=== PATIENT | male | born 1940 | race Caucasian/White ===

== ENCOUNTER 2016-09-23 11:27 | Emergency (ER) | payer MEDICARE, OTHER ==
[2016-09-23] MEDS ORDERED: diltiaZEM INJ 5 MG/ML VIAL IVP STA (12:48)
[2016-09-23] MEDS ORDERED: diltiaZEM INJ 5 MG/ML VIAL ONE (12:56)
== END 2016-09-23 14:00 | disposition home or self-care (01) ==
DX: I48.91 Unspecified atrial fibrillation (principal); I10 Essential (primary) hypertension

== ENCOUNTER 2018-06-20 11:27 | Emergency (ER) | payer MEDICARE, OTHER ==
[2018-06-20 12:11] LABS: BASOPHILS % (AUTO) 0.6 %; EOSINOPHILS % (AUTO) 0.6 %; HGB - HEMOGLOBIN 11.9 g/dL (14.0-18.0); LYMPHOCYTES # (AUTO) 1.3 10^3/uL (1.5-3.5); LYMPHOCYTES % (AUTO) 24.2 %; MEAN CORPUSCULAR HEMOGLOBIN 29.8 pg (27.0-31.0); MEAN CORPUSCULAR VOLUME 87.7 fL (80.0-94.0); MEAN PLATELET VOLUME 8.7 fL (7.4-11.4); MONOCYTES # (AUTO) 0.5 10^3/uL (0.0-1.0); MONOCYTES % (AUTO) 9.8 %; NEUTROPHILS # (AUTO) 3.5 10^3/uL (1.5-6.6); NEUTROPHILS % (AUTO) 64.8 %; PLT - PLATELET COUNT 224 10^3/uL (130-450); RED CELL DISTRIBUTION WIDTH 15.5 % (12.0-15.0); WHITE BLOOD COUNT 5.4 x10^3/uL (4.8-10.8)
[2018-06-20 12:35] LABS: ALBUMIN 4.4 g/dL (3.2-5.5); ALBUMIN/GLOBULIN RATIO 1.4 (1.0-2.2); CALCIUM 9.3 mg/dL (8.5-10.3); CREATININE 1.3 mg/dL (0.6-1.2); TOTAL PROTEIN 7.5 g/dL (6.7-8.2)
--- NOTE | 2018-06-20 12:35 | XRAY Report ---
Reason: increased SOA Procedure Date: 06/20/2018 Accession Number: [id number] / [id number] Procedure: XR - Chest 2 View X-Ray CPT Code: 06719 FULL RESULT: EXAM: CHEST RADIOGRAPHY EXAM DATE: 06/20/2018 12:12 PM. CLINICAL HISTORY: Increased SOA. COMPARISON: 09/23/2016. TECHNIQUE: 2 views. FINDINGS: Lungs/Pleura: No focal opacities evident. No pleural effusion. No pneumothorax. Hyperlucent, hyperinflated. Linear scarring right lung base. Blunting right costophrenic angle.. Mediastinum: Heart size normal. Ectatic aorta. Other: DJD spine, mild wedging midthoracic vertebral bodies. Old left clavicle fracture IMPRESSION: 1. COPD. 2. No active cardiopulmonary disease RADIA
[2018-06-20] MEDS ORDERED: SODIUM CHLORIDE 0.9% 1,000 ML IV ONE (15:43)
[2018-06-20] MEDS ORDERED: PROPOFOL 200 MG/20 ML VIAL IVP STA (16:21)
--- NOTE | 2018-06-20 17:59 | ED Physician Documentation ---
History of Present Illness - Stated complaint Stated Complaint: LOW BLOOD PRESSURE - Chief complaint Chief Complaint: Cardiac - History obtained from History obtained from: Patient - History of Present Illness Timing: Yesterday Pain level max: 0 Pain level now: 0 Quality: lightheadedness Improved by: keeping still Worsened by: standing up from sitting or lying position - Additonal information Additional information: Pt states 0400 the other day he woke up to go to the bathroom and felt lightheaded with nausea with low blood pressure and irregular heart beats that felt like his atrial fib. He called his cutter operator yesterday and no response till today. He was told to go the E.R. Pt denies any recent trauma, travel or illness. Denies any chest pain. States has exertional dyspnea. Pt stated he gets cardioverted for his Atrial fib. The last one was December 04, 2017. He is on Xarelto and Metoprolol. He states he is packed and ready to go on an [place] cruise in 5 days so he would really like to feel better by getting cardioverted today. Review of Systems Ten Systems: 10 systems reviewed and negative Constitutional: denies: Fever, Chills, Myalgias, Fatigue Nose: denies: Rhinorrhea / runny nose, Congestion Throat: denies: Sore throat Cardiac: denies: Chest pain / pressure, Palpitations, Pedal edema Respiratory: reports: Dyspnea. denies: Cough GI: reports: Nausea. denies: Abdominal Pain, Vomiting, Diarrhea Neurologic: denies: Generalized weakness, Focal weakness, Numbness, Near syncope, Syncope PD PAST MEDICAL HISTORY - Past Medical History Past Medical History: Yes Cardiovascular: Hypertension, Atrial fibrillation - Past Surgical History Past Surgical History: Yes General: Hiatal hernia repair - Present Medications Home Medications: Ambulatory Orders Medication Instructions Recorded Confirmed RX: Losartan Potassium 100 mg PO DAILY 09/23/16 09/23/16 RX: amLODIPine [Norvasc] 10 mg PO DAILY 09/23/16 09/23/16 Triamterene/Hydrochlorothiazid 1 each PO DAILY 09/23/16 09/23/16 [Triamterene-Hctz 37.5-25 mg Cp] RX: Atorvastatin [Lipitor] 20 mg 06/20/18 RX: Metoprolol Succinate 25 mg PO 06/20/18 Rivaroxaban [Xarelto] 20 mg PO 06/20/18 - Allergies Allergies/Adverse Reactions: Allergies Allergy/AdvReac Type Severity Reaction Status Date / Time Sulfa (Sulfonamide Allergy Rash Verified 06/20/18 11:45 Antibiotics) - Living Situation Living Situation: reports: With family Living Arrangement: reports: At home - Social History Does the pt smoke?: No Smoking Status: Former smoker Does the pt drink ETOH?: Yes Does the pt have substance abuse?: No - Immunizations Immunizations are current?: Yes PD ED PE NORMAL - Vitals Vital signs reviewed: Yes - General General: Alert and oriented X 3, No acute distress, Well developed/nourished - HEENT HEENT: EOMI, Moist mucous membranes, Pharynx benign - Neck Neck: Supple, no meningeal sign - Cardiac Cardiac: Other (Irregular heart beat. Grade II CHANDRAKANT.) - Respiratory Respiratory: No respiratory distress, Clear bilaterally - Abdomen Abdomen: Normal bowel sounds, Soft, Non tender, Non distended - Derm Derm: Warm and dry - Extremities Extremities: No deformity - Neuro Neuro: Alert and oriented X 3 - Psych Psych: Normal mood, Normal affect Results - Vitals Vitals: Vital Signs - 24 hr 06/20/18 06/20/18 06/20/18 11:42 11:54 16:00 Temperature 36.4 C L Heart Rate 91 80 Respiratory 21 14 Rate Blood Pressure 120/80 O2 Saturation 98 06/20/18 16:40 Temperature Heart Rate 78 Respiratory 12 Rate Blood Pressure 119/64 O2 Saturation 100 Oxygen O2 Source Nasal cannula - EKG (time done) 1134 Rate: Rate (enter#) (80) Rhythm: Atrial fibrillation [place]: LAD Intervals: RBBB 1653 Rate: Rate (enter#) (53) Rhythm: Sinus bradycardia [place]: LAD Intervals: Normal MT QRS: Normal Ischemia: Normal ST segments - Labs Labs: Laboratory Tests 06/20/18 06/20/18 06/20/18 12:04 12:04 12:04 WBC 5.4 RBC 4.00 L Hgb 11.9 L Hct 35.1 L MCV 87.7 MCH 29.8 MCHC 34.0 RDW 15.5 H Plt Count 224 MPV 8.7 Neut # (Auto) 3.5 Lymph # (Auto) 1.3 L Gove # (Auto) 0.5 Eos # (Auto) 0.0 Baso # (Auto) 0.0 Absolute Nucleated RBC 0.00 Nucleated RBC % 0.0 Sodium 138 Potassium 3.9 Chloride 102 Carbon Dioxide 26 Anion Gap 10.0 BUN 24 H Creatinine 1.3 H Estimated GFR (MDRD) 53 L Glucose 94 Calcium 9.3 Total Bilirubin 1.0 AST 20 ALT 17 Alkaline Phosphatase 44 Troponin I < 0.04 Total Protein 7.5 Albumin 4.4 Globulin 3.1 Albumin/Globulin Ratio 1.4 Lipase 28 Procedures - Cardioversion 1 Indication: Other (atrial fib and pt request) Risks, benefits, alternatives explained to: Pt Prep: IV, O2, hospital monitor, Pulse ox, Airway equip Meds: Propofol CS via: Paddles, Pads, AP approach Sync: Biphasic, 100j Post cardioversion rhythm: NSR Performed by: ED MD PD MEDICAL DECISION MAKING - ED course Complexity details: re-evaluated patient (1435 Pt and spouse informed of cardi ologist recommendations and agreed. 1550 Orthostatic VS: sitting-- 123/61, 89; standing--107/73, 110. Pt felt lightheaded for a few seconds. Pt expressed desire to have cardioversion done in the E.R. Risk and benefits discussed of cardioversion and moderate sedation with propofol. Pt expressed understanding. asked questions more than pt who had gone through this before. 1800 Pt eating and had ambulated to the hallway without difficulty. Wants to go home.), considered differential, d/w patient, d/w family, d/w service consultant (1412 Case discussed with cutter operator Dr Kuldeep Lee covering for pt's cutter operator. Case discussed in details. He recommended checking orthostatics and giving pt IVF; hold pt's HCTZ; may cardiovert today if pt wishes otherwise they will see him on Saturday; pt has to call for this appt time.) Departure - Departure Disposition: Home, Self Care Clinical Impression: Atrial fibrillation, Encounter for cardioversion procedure, Lightheadedness Condition: Good Instructions: ED Afib, ED Cardioversion Follow-Up: Provider,Other [Primary Care Provider] - Within 3 Days Comments: CALL YOUR WELL LOGGING MUD ANALYSIS CAPTAIN ON SATURDAY FOR YOUR APPOINTMENT TIME. HOLD YOUR HYDROCHLOROTHIAZIDE UNTIL RENEWED BY YOUR WELL LOGGING MUD ANALYSIS CAPTAIN ON SATURDAY. IF WORSE RETURN TO THE E.R.
[2018-06-20 18:41] VITALS: BP 134/56
== END 2018-06-20 18:40 | disposition home or self-care (01) ==
LOC: ED 11:27
DX: I48.91 Unspecified atrial fibrillation (principal); I45.10 Unspecified right bundle-branch block; R00.1 Bradycardia, unspecified; I10 Essential (primary) hypertension; Z87.891 Personal history of nicotine dependence
CPT/HCPCS: 36415; 71046; 80053; 83690; 84484; 85025; 92960; 93005; 94770; 96360; 96361; 99284

== ENCOUNTER 2019-02-26 08:00 | Outpatient (CLI) | payer MEDICARE, OTHER | END 2019-02-26 23:59 | disposition home or self-care (01) | LOC: LAB 08:00 | PROVIDERS: ATTEND Internal Medicine Cardiovascular Disease | DX: I48.0 Paroxysmal atrial fibrillation (principal); Z79.01 Long term (current) use of anticoagulants; Z95.3 Presence of xenogenic heart valve | CPT/HCPCS: 85610 ==

== ENCOUNTER 2019-03-06 09:18 | Outpatient (CLI) | payer MEDICARE, OTHER | END 2019-03-06 09:19 | disposition home or self-care (01) | LOC: LAB 09:18 | PROVIDERS: ATTEND Internal Medicine Cardiovascular Disease | DX: Z79.01 Long term (current) use of anticoagulants (principal); Z95.3 Presence of xenogenic heart valve; I48.0 Paroxysmal atrial fibrillation | CPT/HCPCS: 85610 ==

== ENCOUNTER 2019-03-11 09:54 | Outpatient (CLI) | payer MEDICARE, OTHER | END 2019-03-11 09:55 | disposition home or self-care (01) | LOC: LAB 09:54 | PROVIDERS: ATTEND Internal Medicine Cardiovascular Disease | DX: I48.0 Paroxysmal atrial fibrillation (principal); Z95.3 Presence of xenogenic heart valve; Z79.01 Long term (current) use of anticoagulants | CPT/HCPCS: 85610 ==

== ENCOUNTER 2019-03-18 09:53 | Outpatient (CLI) | payer MEDICARE, OTHER | END 2019-03-18 09:54 | disposition home or self-care (01) | LOC: LAB 09:53 | PROVIDERS: ATTEND Pharmacist | DX: I48.0 Paroxysmal atrial fibrillation (principal); Z79.01 Long term (current) use of anticoagulants; Z95.3 Presence of xenogenic heart valve | CPT/HCPCS: 85610 ==

== ENCOUNTER 2019-03-30 09:13 | Outpatient (CLI) | payer MEDICARE, OTHER | END 2019-03-30 09:14 | disposition home or self-care (01) | LOC: LAB 09:13 | PROVIDERS: ATTEND Pharmacist | DX: I48.0 Paroxysmal atrial fibrillation (principal); Z79.01 Long term (current) use of anticoagulants; Z95.3 Presence of xenogenic heart valve | CPT/HCPCS: 85610 ==

== ENCOUNTER 2019-04-08 10:09 | Outpatient (CLI) | payer MEDICARE, OTHER | END 2019-04-08 10:10 | disposition home or self-care (01) | LOC: LAB 10:09 | PROVIDERS: ATTEND Pharmacist | DX: I48.0 Paroxysmal atrial fibrillation (principal); Z95.3 Presence of xenogenic heart valve; Z79.01 Long term (current) use of anticoagulants | CPT/HCPCS: 85610 ==

== ENCOUNTER 2019-04-29 10:21 | Outpatient (CLI) | payer MEDICARE, OTHER | END 2019-04-29 10:22 | disposition home or self-care (01) | LOC: LAB 10:21 | PROVIDERS: ATTEND Internal Medicine Cardiovascular Disease | DX: I48.0 Paroxysmal atrial fibrillation (principal); Z95.3 Presence of xenogenic heart valve; Z79.01 Long term (current) use of anticoagulants | CPT/HCPCS: 85610 ==

== ENCOUNTER 2019-05-12 08:48 | Outpatient (CLI) | payer MEDICARE, OTHER | END 2019-05-12 08:49 | disposition home or self-care (01) | LOC: LAB 08:48 | PROVIDERS: ATTEND Internal Medicine Cardiovascular Disease | DX: I48.0 Paroxysmal atrial fibrillation (principal); Z95.3 Presence of xenogenic heart valve; Z79.01 Long term (current) use of anticoagulants | CPT/HCPCS: 85610 ==

== ENCOUNTER 2019-05-19 09:17 | Outpatient (CLI) | payer MEDICARE, OTHER | END 2019-05-19 09:18 | disposition home or self-care (01) | LOC: LAB 09:17 | PROVIDERS: ATTEND Internal Medicine Cardiovascular Disease | DX: I48.0 Paroxysmal atrial fibrillation (principal); Z79.01 Long term (current) use of anticoagulants; Z95.3 Presence of xenogenic heart valve | CPT/HCPCS: 85610 ==

== ENCOUNTER 2019-05-29 10:07 | Outpatient (CLI) | payer MEDICARE, OTHER | END 2019-05-29 10:08 | disposition home or self-care (01) | LOC: LAB 10:07 | PROVIDERS: ATTEND Internal Medicine Cardiovascular Disease | DX: I48.0 Paroxysmal atrial fibrillation (principal); Z79.01 Long term (current) use of anticoagulants; Z95.3 Presence of xenogenic heart valve | CPT/HCPCS: 85610 ==

== ENCOUNTER 2019-06-11 09:06 | Emergency (ER) | payer MEDICARE, OTHER ==
--- NOTE | 2019-06-11 09:45 | ED Physician Documentation ---
History of Present Illness - Stated complaint Stated Complaint: CONTINUOUS NOSE BLEED - Chief complaint Chief Complaint: Heent - Additonal information Additional information: This is a 78-year-old male with a history of atrial fibrillation and heart valve replacement on Xarelto, who presents with a nosebleed. Patient states that the nosebleed began 45 minutes prior to arrival in the absence of any trauma. He has not had nosebleeds in the past. He has been wiping with a blood but has continued to use. He denies bleeding elsewhere. No lightheadedness, shortness of breath. Review of Systems Constitutional: denies: Fever Nose: reports: Epistaxis Respiratory: denies: Dyspnea Neurologic: denies: Near syncope PD PAST MEDICAL HISTORY - Past Medical History Cardiovascular: Hypertension, Atrial fibrillation, Valve disorder Respiratory: None Endocrine/Autoimmune: None GI: None : None Psych: None Musculoskeletal: None Derm: None - Past Surgical History Past Surgical History: Yes General: Hiatal hernia repair Cardiovascular: Valve replacement - Present Medications Home Medications: Ambulatory Orders Medication Instructions Recorded Confirmed Atorvastatin [Lipitor] 20 mg 06/20/18 Metoprolol Succinate 25 mg PO 06/20/18 Rivaroxaban [Xarelto] 20 mg PO 06/20/18 Aspirin [Children's Aspirin] 81 mg PO DAILY 06/11/19 06/11/19 Chlorthalidone 12.5 mg PO DAILY 06/11/19 06/11/19 Furosemide [Lasix] 40 mg PO PRN PRN 06/11/19 06/11/19 Omeprazole 20 mg PO DAILY 06/11/19 06/11/19 - Allergies Allergies/Adverse Reactions: Allergies Allergy/AdvReac Type Severity Reaction Status Date / Time Sulfa (Sulfonamide Allergy Rash Verified 06/20/18 11:45 Antibiotics) - Social History Does the pt smoke?: No Smoking Status: Never smoker Does the pt drink ETOH?: Yes Does the pt have substance abuse?: No - Immunizations Immunizations are current?: Yes - POLST Patient has POLST: No PD ED PE NORMAL - Vitals Vital signs reviewed: Yes - General General: Alert and oriented X 3 - HEENT HEENT: Other (Oozing from the left nare. Nose is atraumatic in appearance.With direct pressure of the using does cease.) - Neck Neck: Supple, no meningeal sign - Cardiac Cardiac: RRR - Respiratory Respiratory: No respiratory distress - Abdomen Abdomen: Non distended - Derm Derm: Warm and dry - Extremities Extremities: No deformity - Neuro Neuro: Alert and oriented X 3 - Psych Psych: Normal mood, Normal affect Results - Vitals Vitals: Vital Signs - 24 hr 06/11/19 06/11/19 06/11/19 09:17 11:29 13:24 Temperature 36.6 C 36.4 C L Heart Rate 73 62 60 Respiratory 19 16 20 Rate Blood Pressure 195/122 H 167/118 H 157/142 H O2 Saturation 100 100 96 Oxygen O2 Source Room air PD MEDICAL DECISION MAKING - ED course Complexity details: considered differential (epistaxis, coagulopathy, thrombocy topenia) ED course: Pt presents with epistaxis, he is hypertensive and on a DOAC. He has had minimal blood loss from his description and no clinical signs of anemia. Using direct pressure his nosebleed did stop temporarily, but then recurred. Clot was removed from his nose and Afrin was applied to both nostrils, and then direct pressure applied once again. This provided excellent hemostasis. With the nose clamps removed for 40 minutes patient had no bleeding and was eager to go home. Given hemostasis was obtained I do not think labs such as CBC and INR are necessary today. I discussed care for epistaxis at home, PCP follow up, and strict return precautions. Pt agreed and was discharged home. Departure - Departure Disposition: 01 Home, Self Care Clinical Impression: Epistaxis Condition: Good Instructions: Nosebleed Follow-Up: Monty Rachel MD [Primary Care Provider] - Comments: You were seen today for nosebleed. If your nosebleed recurs please spray the Af rin up your nostril twice and then replaced the clamps for 15 minutes. Do not use the Afrin for more than 3 days at a time. If you are still having bleeding after direct pressure for 15 minutes return to the emergency department. Your blood pressure was quite high today, please log your blood pressure and follow- up with your primary care provider on this. Discharge Date/Time: 06/11/19 13:25
[2019-06-11] MEDS ORDERED: CHLORTHALIDONE 25 MG TABLET PO STA (11:10)
[2019-06-11] MEDS ORDERED: OXYMETAZOLINE HCL 100 SPRAYS BOTTLE NAS STA (11:22)
[2019-06-11 13:25] VITALS: BP 157/142
== END 2019-06-11 13:25 | disposition home or self-care (01) ==
LOC: ED 09:06
DX: R04.0 Epistaxis (principal); Z79.01 Long term (current) use of anticoagulants; Z79.82 Long term (current) use of aspirin; I48.91 Unspecified atrial fibrillation; Z95.2 Presence of prosthetic heart valve; I10 Essential (primary) hypertension
CPT/HCPCS: 99282; 99284; A9270

== ENCOUNTER 2021-09-18 15:26 | Outpatient (CLI) | payer MEDICARE, OTHER | END 2021-09-18 15:27 | disposition critical access hospital (66) | LOC: EMS 15:26 | DX: R29.898 Other symptoms and signs involving the musculoskeletal system (principal); H51.0 Palsy (spasm) of conjugate gaze | CPT/HCPCS: A0425; A0427 ==

== ENCOUNTER 2021-09-18 15:36 | Emergency (ER) | payer MEDICARE, OTHER ==
--- NOTE | 2021-09-18 15:50 | ED Physician Documentation ---
PD HPI FOCAL NEURO - Stated complaint Stated Complaint: AMS - History obtained from History obtained from: Patient, EMS - History of Present Illness Timing - onset: Enter time (2229), Last night Timing - duration: Hours Timing - details: Abrupt onset, Still present Time of symptom onset unknown: Time of onset unknown Severity of deficit: Severe Weakness: Arm, Hand, Leg, Foot, Left Associated symptoms: Headache, Fall, Head injury, Neck pain. No: Nausea / vomiting, Seizure, Syncope Contributing factors: positive: Anticoagulated Baseline status: positive: A&OX3, ambulatory, indep Similar symptoms before: Has not had sx before Recently seen: Not recently seen - Additional information Additional information: 80-year-old male on Xarelto with atrial fibrillation has had a fall in his home last night about 10:30 PM. He has not been able to use his left side since that time this is not resolved today and his is called the ambulance. The patient appears to have left neglect and weakness to the left side this was not pre-existing. Review of Systems Unable to obtain: Confused Constitutional: denies: Fever Ears: denies: Ear pain Nose: denies: Congestion Respiratory: denies: Dyspnea, Cough GI: denies: Vomiting Neurologic: reports: Focal weakness PD PAST MEDICAL HISTORY - Past Medical History Cardiovascular: Hypertension, Atrial fibrillation, Valve disorder Respiratory: None Endocrine/Autoimmune: None GI: None : None Psych: None Musculoskeletal: None Derm: None - Past Surgical History Past Surgical History: Yes General: Hiatal hernia repair Cardiovascular: Valve replacement - Present Medications Home Medications: Ambulatory Orders Medication Instructions Recorded Confirmed Atorvastatin [Lipitor] 20 mg 06/20/18 Metoprolol Succinate 25 mg PO 06/20/18 Rivaroxaban [Xarelto] 20 mg PO 06/20/18 Aspirin [Children's Aspirin] 81 mg PO DAILY 06/11/19 06/11/19 Chlorthalidone 12.5 mg PO DAILY 06/11/19 06/11/19 Furosemide [Lasix] 40 mg PO PRN PRN 06/11/19 06/11/19 Omeprazole 20 mg PO DAILY 06/11/19 06/11/19 - Allergies Allergies/Adverse Reactions: Allergies Allergy/AdvReac Type Severity Reaction Status Date / Time Sulfa (Sulfonamide Allergy Rash Verified 06/20/18 11:45 Antibiotics) - Social History Does the pt smoke?: No Smoking Status: Never smoker Does the pt drink ETOH?: Yes Does the pt have substance abuse?: No - Immunizations Immunizations are current?: Yes - POLST Patient has POLST: No PD ED PE NORMAL - Vitals Vital signs reviewed: Yes - General General: No acute distress, Well developed/nourished - HEENT HEENT: PERRL, EOMI, Other (Ecchymosis to the central forehead is mild.) - Neck Neck: Supple, no meningeal sign, Other (Mild mid cervical spine tenderness) - Cardiac Cardiac: Other (Irregularly irregular rate and rhythm with a 2 out of 6 holosystolic murmur at the left sternal border.) - Respiratory Respiratory: No respiratory distress, Clear bilaterally - Abdomen Abdomen: Soft, Non tender - Back Back: No CVA TTP, No spinal TTP - Derm Derm: Normal color, Warm and dry, No rash - Extremities Extremities: No deformity, No edema - Neuro Neuro: vice president of finance 2-12 intact, Normal speech Eye Opening: Spontaneous Motor: Obeys Commands Verbal: Confused GCS Score: 14 - Psych Psych: Normal mood, Normal affect NIHSS - Time Time: 15:45 - Level of Consciousness Level of consciousness: (0) Alert, Keenly responsive LOC Questions: (0) Answers both Q's correct LOC Commands: (1) Performs one correctly - Gaze Best Gaze: (1) Partial gaze palsy - Visual Visual: (1) Partial hemianopia - Facial Palsy Facial Palsy: (0) Normal, symmetrical movement - Motor Arms (both separate) Motor Arm (right): (0) No drift Motor Arm (left): (1) Drift - Motor Legs (both separate) Motor Leg (right): (0) No drift Motor Leg (left): (2) Some effort against gravity - Limb Ataxia Limb Ataxia: (2) Present in 2 limbs - Sensory Sensory: (1) Uueg-vn-toapnnla loss - Best Language Best Language: (0) No aphasia - Dysarthria Dysarthria: (0) Normal - Extinction and Inattention (formally neg Extinction and inattention: (1) Visual,tactile,auditory,spatial, or personal inattention - Total Score/Results Total Score/Result: 10 Results - Vitals Vitals: Vital Signs - 24 hr 01/10/22 01/10/22 01/10/22 15:40 16:49 17:00 Temperature 36.9 C 37.3 C Heart Rate 92 85 83 Respiratory 14 22 21 Rate Blood Pressure 163/108 H 175/100 H 131/114 H O2 Saturation 99 97 99 09/18/21 09/18/21 17:30 18:00 Temperature Heart Rate 95 94 Respiratory 17 18 Rate Blood Pressure 178/107 H 172/110 H O2 Saturation 100 96 Oxygen O2 Source Room air - EKG (time done) 1551 Rate: Rate (enter#) (107) Rhythm: Sinus tachycardia Intervals: RBBB Ischemia: ST depression (anterolateral diffuse suggesting ischemia) Compare to prior EKG: Changed from prior EKG (SPT 06/20/2018 the rhythm has changed to sinus, the rate is faster and lateral ST depression has occurred. ) Computer interpretation: Agree with computer - Labs Labs: Laboratory Tests 09/18/21 09/18/21 09/18/21 16:00 16:00 16:00 WBC 14.5 H RBC 5.36 Hgb 17.2 Hct 49.8 MCV 92.9 MCH 32.1 H MCHC 34.5 RDW 14.0 Plt Count 148 MPV 11.5 H Neut # (Auto) 12.7 H Lymph # (Auto) 0.9 L Brew[place] # (Auto) 0.8 Eos # (Auto) 0.0 Baso # (Auto) 0.0 Absolute Nucleated RBC 0.00 Nucleated RBC % 0.0 PT 26.5 H INR 2.4 H APTT 33.2 Sodium 137 Potassium 2.9 L Chloride 97 L Carbon Dioxide 27 Anion Gap 13.0 BUN 16 Creatinine 1.0 Estimated GFR (MDRD) 72 L Glucose 130 H Calcium 9.5 Total Bilirubin 2.1 H AST 33 ALT 21 Alkaline Phosphatase 62 Total Protein 8.3 H Albumin 4.4 Globulin 3.9 Albumin/Globulin Ratio 1.1 Lipase 24 - Rads (name of study) CT head Radiology: Prelim report reviewed (Impression: 1. Large intraparenchymal hemorrhage with extension into the ventricular system. This may be a hypertensive hemorrhage or large hemorrhagic stroke. There is a small amount of right to left midline shift is seen within the lateral ventricles and generalized cerebral edema ), Final report received (cerebral edema throughout the upper right hemisphere. No evidence of fracture or significant soft tissue injury.), EMP read indepedently, See rad report PD MEDICAL DECISION MAKING - ED course Complexity details: reviewed old records, reviewed results, re-evaluated patient, considered differential, d/w patient ED course: 80-year-old male with atrial fibrillation on Xarelto has had a fall, contusion to the forehead, and has radiographically demonstrated intra ventricular hemorrhage. He is administered Kcentra and the trauma center at [facility] is consulted. They have recommended a systolic blood pressure under 160 use of labetalol if necessary and the head of the bed at 30 degrees. 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 His pressure is high and Labetalol is started with a 10mg bolus dose and a drip at 0.5mg/min start. Dr. Orellana at [facility] has indicated they are not able to care for this patient now at [facility] and he recommends attempt to transfer elsewhere and a call back if unsuccessful. At shift change care is turned over to Dr. Padilla awaiting a hospital with neurosurgery capability. Departure - Departure Disposition: 02 Transfer Acute Care Hosp Clinical Impression: Traumatic intracranial hemorrhage Qualifiers: Encounter type: initial encounter Loss of consciousness presence/duration: with LOC of unspecified duration Qualified Code(s): S06.309A - Unspecified focal traumatic brain injury with loss of consciousness of unspecified duration, initial encounter Condition: Stable
[2021-09-18 16:04] LABS: BASOPHILS % (AUTO) 0.3 %; HCT - HEMATOCRIT 49.8 % (42.0-52.0); HGB - HEMOGLOBIN 17.2 g/dL (14.0-18.0); LYMPHOCYTES # (AUTO) 0.9 10^3/uL (1.5-3.5); LYMPHOCYTES % (AUTO) 6.1 %; MEAN CORPUSCULAR HEMOGLOBIN 32.1 pg (27.0-31.0); MEAN CORPUSCULAR HGB CONC 34.5 g/dL (32.0-36.0); MEAN CORPUSCULAR VOLUME 92.9 fL (80.0-94.0); MEAN PLATELET VOLUME 11.5 fL (7.4-11.4); MONOCYTES # (AUTO) 0.8 10^3/uL (0.0-1.0); MONOCYTES % (AUTO) 5.5 %; NEUTROPHILS # (AUTO) 12.7 10^3/uL (1.5-6.6); NEUTROPHILS % (AUTO) 87.7 %; PLT - PLATELET COUNT 148 10^3/uL (130-450); RED BLOOD COUNT 5.36 10^6/uL (4.70-6.10); WHITE BLOOD COUNT 14.5 x10^3/uL (4.8-10.8)
[2021-09-18 16:09] LABS: INR 2.4 (0.8-1.2); PT - PROTHROMBIN TIME 26.5 secs (9.9-12.6)
[2021-09-18] MEDS ORDERED: iohexoL-300 100 ML VIAL ONE (16:09)
[2021-09-18 16:17] LABS: ALBUMIN 4.4 g/dL (3.2-5.5); ALBUMIN/GLOBULIN RATIO 1.1 (1.0-2.2); BILIRUBIN,TOTAL 2.1 mg/dL (0.2-1.0); CALCIUM 9.5 mg/dL (8.5-10.3); PARTIAL THROMBOPLASTIN TIME 33.2 secs (24.9-33.3); POTASSIUM 2.9 mmol/L (3.5-5.0); TOTAL PROTEIN 8.3 g/dL (6.7-8.2)
--- NOTE | 2021-09-18 16:30 | XRAY Report ---
PROCEDURE: Chest 1 View X-Ray INDICATIONS: chest pain TECHNIQUE: One view of the chest was acquired. COMPARISON: 06/20/2018 FINDINGS: Surgical changes and devices: Median sternotomy wires and prosthetic heart valve are seen. Lungs and pleura: No pleural effusions or pneumothorax. Lungs are clear. Mediastinum: Mildly tortuous thoracic aorta is noted. Heart size is normal. Bones and chest wall: No suspicious bony lesions. Overlying soft tissues appear unremarkable. IMPRESSION: No acute cardiopulmonary pathology. Reviewed by: Wesley Hines MD on 09/18/2021 4:29 PM PST Approved by: Wesley Hines MD on 09/18/2021 4:29 PM PST Station ID: [id number]
[2021-09-18] MEDS ORDERED: PROTHROMBIN COMPLEX CONC 500 UNIT VIAL IVP STA (16:45)
--- NOTE | 2021-09-18 16:58 | CT Report ---
PROCEDURE: HEAD WO INDICATIONS: LEFT SIDE WEAKNESS/NEGLECT TECHNIQUE: Noncontrast 4.5 mm thick angled axial sections acquired from the foramen magnum to the vertex. For r adiation dose reduction, the following was used: automated exposure control, adjustment of mA and/or kV according to patient size. COMPARISON: None. FINDINGS: Image quality: Excellent. Large right parietal intraparenchymal hemorrhage measuring about 6.1 x 7.1 x 4.3 cm. There is surroun ding vasogenic edema. Hemorrhage extends into the atrium of the lateral ventricle. There is about 7 m m of midline shift to the intraventricular septum. Blood fills the third ventricle and is seen in the fourth ventricle but there is no hydrocephalus. Mild generalized edema is present throughout the upp er portion of the right cerebral hemisphere. The basal cisterns are patent and there is no uncal luz iation. Skull and face: Calvarium and visualized facial bones are intact, without suspicious lesions. Sinuses: Visualized sinuses and mastoids are clear. IMPRESSION: 1. Large intraparenchymal hemorrhage with extension into the ventricular system. This may be hyperten sive hemorrhage or large hemorrhagic stroke. 2. There is a small amount of [id number] midline shift is seen within the lateral ventricles and g eneralized cerebral edema throughout the upper right hemisphere. 3. No evidence of fracture or significant soft tissue injury. 4. Discussed with Dr. Reeves in the emergency room at 1651 hours Reviewed by: Yuliana Tolbert MD on 09/18/2021 4:57 PM PST Approved by: Yuliana Tolbert MD on 09/18/2021 4:57 PM PST Station ID: [id number]
[2021-09-18] MEDS ORDERED: LABETALOL 20 MG/4 ML SYRINGE IVP STA (18:05)
--- NOTE | 2021-09-18 18:18 | ED Physician Documentation ---
ED Addendum - Addendum Addendum: 09/18/21 18:[address] Reeves at shift change. Briefly is an 80-year-old gentleman on Xarelto who has a large intracranial hemorrhage. [facility] has declined the case as they are too full and calls are being made to find a place with neurosurgical availability. He had received Kcentra, 2000 mg IV to reverse his Xarelto. Dr. Reeves is ordering a CT of the neck at shift change which I will follow-up on. 09/18/21 19:11 Received a call back from Dr. Abdul, neurosurgery at [facility]. He agrees with transfer and they do have a bed available. They will call me back with the skin grader. 09/18/21 20:[address] Greer, ICU physician at . [facility] completed and [facility] PCS as well. 09/18/21 20:54 Critical care time: 45 minutes, spent in patient evaluation, family counseling, and multiple consultations. Also titration of labetalol drip.
[2021-09-18] MEDS: LABETALOL VIAL 200 MG in SODIUM CHLORIDE 0.9% 160 ML IV STA ×3 (18:38→20:47)
[2021-09-18 18:55] LABS: B. PARAPERTUSSIS- RESP PCR PAN NOT DETECTED; B. PERTUSSIS- RESP PCR PANEL NOT DETECTED; C. PNEUMONIAE- RESP PCR PANEL NOT DETECTED; CORONAVIRUS 229E-RESP PCR NOT DETECTED; CORONAVIRUS HKU1-RESP PCR NOT DETECTED; CORONAVIRUS NL63-RESP PCR NOT DETECTED; CORONAVIRUS OC43-RESP PCR NOT DETECTED; HUMAN METAPNEUMOVIRUS NOT DETECTED; INFLUENZA A- RESP PCR PANEL NOT DETECTED; INFLUENZA B - RESP PCR PANEL NOT DETECTED; M. PNEUMONIAE- RESP PCR PANEL NOT DETECTED; PARAINFLUENZA VIRUS 1 NOT DETECTED; PARAINFLUENZA VIRUS 2 NOT DETECTED; PARAINFLUENZA VIRUS 3 NOT DETECTED; PARAINFLUENZA VIRUS 4 NOT DETECTED; RHINOVIRUS/ENTEROVIRUS NOT DETECTED; RSV- RESP PCR PANEL NOT DETECTED; SARS-CoV-2 -RESP PCR PANEL NOT DETECTED
--- NOTE | 2021-09-18 19:11 | CT Report ---
PROCEDURE: CERVICAL SPINE WO INDICATIONS: fall head injury neck pain TECHNIQUE: Noncontrast 3 mm thick sections acquired from the skull base to the T4 level. Sagittal and coronal r eformats were then constructed. For radiation dose reduction, the following was used: automated exp osure control, adjustment of mA and/or kV according to patient size. COMPARISON: CT head 09/18/2021. FINDINGS: Image quality: Excellent. Bones: No acute fractures or dislocations. Visualized superior ribs are intact. Multilevel degener ative disc disease and facet hypertrophy is seen throughout the cervical spine. No high-grade narrowi ng of the bony spinal canal is seen. Soft tissues: No right-sided intracranial hemorrhage with intraventricular extension is partially im aged within the included right occipital lobe and fourth ventricle. Prevertebral soft tissues are nor mal in thickness. No paravertebral hematomas. No apical pneumothoraces. IMPRESSION: 1.No acute cervical spine fracture or subluxation. 2.Known intraparenchymal hemorrhage in the right cerebral hemisphere is partially imaged with known i ntraventricular extension of blood products. 3.Multilevel spondylosis. Reviewed by: Karl Dutta MD on 09/18/2021 7:09 PM PST Approved by: Karl Dutta MD on 09/18/2021 7:09 PM PST Station ID: [id number]
[2021-09-18] MEDS ORDERED: LABETALOL 5 MG/1 ML 20 ML MDV ONE ×3 (20:03→22:05)
[2021-09-18] MEDS ORDERED: LABETALOL VIAL 200 MG in SODIUM CHLORIDE 0.9% 160 ML IV STA ×2 (20:38→21:43)
[2021-09-18] MEDS ORDERED: ONDANSETRON 4 MG/2 ML VIAL IVP STA (20:53)
[2021-09-18 21:29] VITALS: BP 134/92
== END 2021-09-18 21:54 | disposition short-term general hospital (02) ==
LOC: EDUNIT# → ED 15:36
DX: S06.309A Unspecified focal traumatic brain injury with loss of consciousness of unspecified duration, initial encounter (principal); S00.83XA Contusion of other part of head, initial encounter; W19.XXXA Unspecified fall, initial encounter; Y92.009 Unspecified place in unspecified non-institutional (private) residence as the place of occurrence of the external cause; I10 Essential (primary) hypertension; G81.94 Hemiplegia, unspecified affecting left nondominant side; R29.710 NIHSS score 10; R00.0 Tachycardia, unspecified; I45.10 Unspecified right bundle-branch block; I48.91 Unspecified atrial fibrillation; Z79.01 Long term (current) use of anticoagulants; Z79.82 Long term (current) use of aspirin; M47.812 Spondylosis without myelopathy or radiculopathy, cervical region; Z20.822 Contact with and (suspected) exposure to COVID-19
CPT/HCPCS: 36415; 70450; 71045; 72125; 80053; 83690; 85025; 85610; 85730; 87631; 93005; 96365; 96366; 96375; 96376; 99285; 99291; J7168; 0202U

== ENCOUNTER 2022-12-15 21:39 | Emergency (ER) | payer MEDICARE ==
[2022-12-15 21:58] VITALS: BP 118/78
[2022-12-15] MEDS ORDERED: IPRATROPIUM/ALBUTEROL 3 ML NEB INH STA (22:17)
--- NOTE | 2022-12-15 22:22 | ED Physician Documentation ---
PD HPI URI - Stated complaint Stated Complaint: COUGH - Chief complaint Chief Complaint: Resp - History obtained from History obtained from: Patient, Family - History of Present Illness Pain level max: 0 Pain level now: 0 Improves by: Rest (Patient is an 82-year-old male who presents to the emergency department with a cough x1 week. No fevers. No chills. Mostly dry. Negative COVID test x2. No difficulty breathing. Is not taking anything for it at home. No history of COPD or asthma. He states he does not smoke.) Review of Systems Constitutional: denies: Fever, Chills Nose: reports: Rhinorrhea / runny nose, Congestion Respiratory: reports: Cough. denies: Dyspnea GI: denies: Vomiting, Diarrhea Skin: denies: Rash PD PAST MEDICAL HISTORY - Past Medical History Cardiovascular: Hypertension, Atrial fibrillation, Valve disorder Respiratory: None Endocrine/Autoimmune: None GI: None : None Psych: None Musculoskeletal: None Derm: None - Past Surgical History Past Surgical History: Yes General: Hiatal hernia repair Cardiovascular: Valve replacement - Present Medications Home Medications: Ambulatory Orders Medication Instructions Recorded Confirmed Atorvastatin [Lipitor] 20 mg 06/20/18 Metoprolol Succinate 25 mg PO 06/20/18 Rivaroxaban [Xarelto] 20 mg PO 06/20/18 Aspirin [Children's Aspirin] 81 mg PO DAILY 06/11/19 06/11/19 Chlorthalidone 12.5 mg PO DAILY 06/11/19 06/11/19 Furosemide [Lasix] 40 mg PO PRN PRN 06/11/19 06/11/19 Omeprazole 20 mg PO DAILY 06/11/19 06/11/19 Benzonatate [Tessalon] 200 mg PO TID PRN #30 cap 12/15/22 - Allergies Allergies/Adverse Reactions: Allergies Allergy/AdvReac Type Severity Reaction Status Date / Time Sulfa (Sulfonamide Allergy Rash Verified 12/15/22 21:57 Antibiotics) - Social History Does the pt smoke?: No Smoking Status: Never smoker Does the pt drink ETOH?: Yes Does the pt have substance abuse?: No - Immunizations Immunizations are current?: Yes - POLST Patient has POLST: No PD ED PE NORMAL - Vitals Vital signs reviewed: Yes - General General: Alert and oriented X 3, No acute distress - HEENT HEENT: Moist mucous membranes - Neck Neck: Supple, no meningeal sign - Cardiac Cardiac: RRR - Respiratory Respiratory: No respiratory distress, Other (Mild rhonchi in the bilateral lower lobes. Otherwise clear to auscultation bilaterally) - Abdomen Abdomen: Soft, Non tender, Non distended - Derm Derm: Warm and dry - Extremities Extremities: No edema - Neuro Neuro: Alert and oriented X 3 Results - Vitals Vitals: Vital Signs - 24 hr 12/15/22 12/15/22 21:54 22:30 Temperature 36.9 C Heart Rate 96 82 Respiratory 16 18 Rate Blood Pressure 118/78 O2 Saturation 97 Oxygen O2 Source Room air - Rads (name of study) Chest x-ray Relevant Findings:: Final report received, See rad report PD Medical Decision Making - ED course Complexity details: reviewed results, re-evaluated patient, considered differential, d/w patient, d/w family ED course: No evidence of pneumonia on chest x-ray. Patient is very well-appearing, nontoxic. Afebrile. No hypoxia. No respiratory distress. Was given a DuoNeb treatment, did not feel like this changed much. We will place him on Tessalon for home. Appears to be a viral URI. He has already had 2 negative COVID test. Patient counseled regarding signs and symptoms for which I believe and urgent re-evaluation would be necessary. Patient with good understanding of and agreement to plan and is comfortable going home at this time This document was made in part using voice recognition software. While efforts are made to proofread this document, sound alike and grammatical errors may occur. Departure - Departure Disposition: 01 Home, Self Care Clinical Impression: Upper respiratory tract infection Qualifiers: URI type: unspecified viral URI Qualified Code(s): J06.9 - Acute upper respiratory infection, unspecified Condition: Good Instructions: ED Viral Syndrome Follow-Up: Bon Simpson [Primary Care Provider] - Within 1 week Prescriptions: Benzonatate [Tessalon] 200 mg PO TID PRN #30 cap PRN Reason: Cough Comments: There is no evidence of pneumonia on your chest x-ray today. Please follow-up with your doctor for further care. Please return if you worsen. This appears to be a viral upper respiratory infection. Your prescriptions were sent to [facility] in [place].
--- NOTE | 2022-12-15 22:49 | XRAY Report ---
PROCEDURE: Chest 1 View X-Ray INDICATIONS: cough TECHNIQUE: One view of the chest was acquired. COMPARISON: 09/18/2021 chest plain films. FINDINGS: Surgical changes and devices: Prior sternotomy wires Lungs and pleura: No pleural effusions or pneumothorax. Lungs are abnormal with a mild degree of pu lmonary edema or interstitial prominence. Mediastinum: Mediastinal contours appear normal. Heart size is mildly enlarged chronically. Bones and chest wall: No suspicious bony lesions. Overlying soft tissues appear unremarkable. IMPRESSION: No pneumonia found. Chronic CHF pattern, prior sternotomy. Reviewed by: Alec Quintanilla MD on 12/15/2022 10:48 PM PDT Approved by: Alec Quintanilla MD on 12/15/2022 10:48 PM PDT Station ID: [id number]
[2022-12-15] MEDS ORDERED: BENZONATATE 100 MG CAPSULE PO STA (23:01)
== END 2022-12-15 23:32 | disposition home or self-care (01) ==
LOC: ED 21:39
DX: J06.9 Acute upper respiratory infection, unspecified (principal)
CPT/HCPCS: 71045; 99283; A9270

== ENCOUNTER 2023-01-21 16:06 | Emergency (ER) | payer MEDICARE ==
[2023-01-21 16:49] LABS: BASOPHILS # (AUTO) 0.1 10^3/uL (0.0-0.1); BASOPHILS % (AUTO) 1.1 %; EOSINOPHILS # (AUTO) 0.2 10^3/uL (0.0-0.7); EOSINOPHILS % (AUTO) 2.4 %; HCT - HEMATOCRIT 40.5 % (42.0-52.0); HGB - HEMOGLOBIN 12.9 g/dL (14.0-18.0); LYMPHOCYTES # (AUTO) 1.8 10^3/uL (1.5-3.5); LYMPHOCYTES % (AUTO) 24.6 %; MEAN CORPUSCULAR HEMOGLOBIN 30.4 pg (27.0-31.0); MEAN CORPUSCULAR HGB CONC 31.9 g/dL (32.0-36.0); MEAN CORPUSCULAR VOLUME 95.5 fL (80.0-94.0); MEAN PLATELET VOLUME 11.3 fL (7.4-11.4); MONOCYTES # (AUTO) 0.9 10^3/uL (0.0-1.0); MONOCYTES % (AUTO) 12.4 %; NEUTROPHILS # (AUTO) 4.2 10^3/uL (1.5-6.6); NEUTROPHILS % (AUTO) 59.2 %; PLT - PLATELET COUNT 191 10^3/uL (130-450); RED BLOOD COUNT 4.24 10^6/uL (4.70-6.10); RED CELL DISTRIBUTION WIDTH 15.5 % (12.0-15.0); WHITE BLOOD COUNT 7.1 x10^3/uL (4.8-10.8)
[2023-01-21 17:01] LABS: ALBUMIN/GLOBULIN RATIO 1.1 (1.0-2.2); BILIRUBIN,TOTAL 1.6 mg/dL (0.2-1.0); CALCIUM 9.4 mg/dL (8.5-10.3); CREATININE 1.2 mg/dL (0.6-1.2); POTASSIUM 3.6 mmol/L (3.5-5.0); TOTAL PROTEIN 7.6 g/dL (6.7-8.2)
--- NOTE | 2023-01-21 17:02 | XRAY Report ---
PROCEDURE: Chest 1 View X-Ray INDICATIONS: Chest Pain TECHNIQUE: One view of the chest was acquired. COMPARISON: None. FINDINGS: Surgical changes and devices: Prosthetic valve and prior sternotomy. Lungs and pleura: Small pleural effusions, right greater than left. Mediastinum: Mediastinal contours appear normal. Heart size is enlarged. Bones and chest wall: No suspicious bony lesions. Overlying soft tissues appear unremarkable. IMPRESSION: Small pleural effusions, right greater than left. Reviewed by: Lambert Simmons on 01/21/2023 5:00 PM PDT Approved by: Lambert Simmons on 01/21/2023 5:00 PM PDT Station ID: [id number]
--- NOTE | 2023-01-21 17:56 | ED Physician Documentation ---
History of Present Illness - Stated complaint Stated Complaint: SOA - Chief complaint Chief Complaint: Resp - Additonal information Additional information: 82-year-old male who has a history of atrial fibrillation presents the emergency department for evaluation of 1 week of dyspnea and orthopnea. He denies chest pain or cough. No fevers. He does have some swelling on his lower extremities but he is unsure how long this has been occurring. He does report that in 2018 he had an ablation at [facility]. The patient historically has taken carvedilol and lisinopril as well as a daily aspirin. He was previously on Xarelto but in September 2021 he had a large intraparenchymal hemorrhage. The patient was subsequently transferred to [place] for management of this and has not been on anticoagulation since. Patient is followed by cardiology at [facility] Dr. Temple Meds: Carvedilol 25 mg twice daily, lisinopril 20 mg twice daily, atorvastatin 10 mg once daily, 81 mg aspirin daily Review of Systems Constitutional: denies: Fever Nose: reports: Reviewed and negative Throat: reports: Reviewed and negative Cardiac: reports: Pedal edema. denies: Chest pain / pressure, Palpitations, Calf pain Respiratory: reports: Dyspnea. denies: Cough, Hemoptysis, Wheezing GI: reports: Reviewed and negative : reports: Reviewed and negative PD PAST MEDICAL HISTORY - Past Medical History Cardiovascular: Hypertension, Atrial fibrillation, Valve disorder Respiratory: None Endocrine/Autoimmune: None GI: None : None Psych: None Musculoskeletal: None Derm: None - Past Surgical History Past Surgical History: Yes General: Hiatal hernia repair Cardiovascular: Valve replacement - Present Medications Home Medications: Ambulatory Orders Medication Instructions Recorded Confirmed Atorvastatin [Lipitor] 20 mg 06/20/18 Metoprolol Succinate 25 mg PO 06/20/18 Rivaroxaban [Xarelto] 20 mg PO 06/20/18 Aspirin [Children's Aspirin] 81 mg PO DAILY 06/11/19 06/11/19 Chlorthalidone 12.5 mg PO DAILY 06/11/19 06/11/19 Furosemide [Lasix] 40 mg PO PRN PRN 06/11/19 06/11/19 Omeprazole 20 mg PO DAILY 06/11/19 06/11/19 Benzonatate [Tessalon] 200 mg PO TID PRN #30 cap 12/15/22 - Allergies Allergies/Adverse Reactions: Allergies Allergy/AdvReac Type Severity Reaction Status Date / Time Sulfa (Sulfonamide Allergy Rash Verified 12/15/22 21:57 Antibiotics) - Social History Does the pt smoke?: No Smoking Status: Never smoker Does the pt drink ETOH?: Yes Does the pt have substance abuse?: No - Immunizations Immunizations are current?: Yes - POLST Patient has POLST: No PD ED PE EXPANDED - General General: Alert, No acute distress, Other (Short of breath with conversation) - Cardiac Cardiac: Irregularly irregular, Murmur Present, Radial strong equal, Pedal strong equal, Cap refill < 2 sec, Other (2+ pitting edema bilateral lower extremities) - Respiratory Respiratory: Clear to ausultation tina. No: Distress, Labored - Abdomen Abdomen: Normal Bowel sounds. No: Tender to palpation - Derm Derm: Normal color, Warm and dry. No: Rash - Extremities Extremities: Normal, Pedal edema bilateral. No: Deformity, Tenderness - Neuro Neuro: Alert and Oriented X 3, CNII-XII intact - GCS Eye Opening: Spontaneous Motor: Obeys Commands Verbal: Oriented Total: 15 Results - Vitals Vitals: Vital Signs - 24 hr 01/21/23 01/21/23 01/21/23 16:17 17:47 18:27 Temperature 36.3 C L Heart Rate 104 H 101 H 96 Respiratory 22 20 16 Rate Blood Pressure 144/107 H 132/114 H 150/115 H O2 Saturation 99 96 96 01/21/23 21:25 Temperature Heart Rate 99 Respiratory 16 Rate Blood Pressure 149/121 H O2 Saturation 94 Oxygen O2 Source Room air - EKG (time done) 1624 EKG releavant findings:: EKG personally interpreted by author of this note. Relevant findings are: Rate: Rate (enter#) (96) Rhythm: Atrial fibrillation [place]: Other Intervals: RBBB QRS: Normal Ischemia: Non specific changes Compare to prior EKG: Unchanged from prior EKG Computer interpretation: Agree with computer - Labs Labs: Laboratory Tests 01/21/23 01/21/23 01/21/23 16:43 16:43 16:43 WBC 7.1 RBC 4.24 L Hgb 12.9 L Hct 40.5 L MCV 95.5 H MCH 30.4 MCHC 31.9 L RDW 15.5 H Plt Count 191 MPV 11.3 Neut # (Auto) 4.2 Lymph # (Auto) 1.8 [place] # (Auto) 0.9 Eos # (Auto) 0.2 Baso # (Auto) 0.1 Absolute Nucleated RBC 0.00 Nucleated RBC % 0.0 Sodium 141 Potassium 3.6 Chloride 106 Carbon Dioxide 24 Anion Gap 11.0 BUN 21 H Creatinine 1.2 Estimated GFR (MDRD) 58 L Glucose 112 H Calcium 9.4 Total Bilirubin 1.6 H AST 19 ALT 19 Alkaline Phosphatase 64 B-Natriuretic Peptide 2305 H Total Protein 7.6 Albumin 4.0 Globulin 3.6 Albumin/Globulin Ratio 1.1 Lipase 30 PD Medical Decision Making - ED course Complexity details: reviewed results, re-evaluated patient, d/w patient ED course: 82-year-old male presents emergency department for evaluation of dyspnea that began about 1 week ago. Reports that he is increasingly labored with exertion and when he lies supine. He has had no cough or fevers. Denies chest pain. He reports to me a history of A-fib for which he underwent an ablation in 2018. He was historically on Xarelto but in September 2021 he did develop a large intraparenchymal hemorrhage. He was subsequently flown to [facility] where he was treated by neurosurgery. At this time the patient takes only carvedilol, lisinopril, atorvastatin and a daily aspirin. On presentation the patient is alert though tachypneic. His room air saturation s are 94 to 99%. We did ambulate him and he does not have any findings of exertional hypoxia. He does have 2+ pitting edema to his lower legs. He admits he does not look at them often and is unsure if this is new. I did obtain a CBC, electrolytes as well as a BNP. Per my interpretation no acute worrisome findings. He has a hemoglobin of nearly 13. He has preserved renal function. However his BNP is markedly elevated at 2300. A chest x-ray suggest that he is developing some bilateral pleural effusions right greater than left as interpreted by the radiologist. Subsequently I suspect that the cause of his dyspnea for the last week is congestive heart failure. This patient was administered 60 mg of Lasix IV. However given the cardiac history with ablation I will reach out to [facility] to discuss this case with them. 184: I spoke with [facility] perch machine inspector Dr. Edwards. He was able to tell me that in June 2022 the patient had an echocardiogram that showed a normal ejection fraction of 55 to 60%. 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 He reports the patient has never had a history of heart failure. Given the new presentation of dyspnea with an elevated BNP of 2300 he would recommend the patient stay for echocardiogram. If we are able to diurese the patient and improve his dyspnea, he would be stable for discharge home to follow closely with the [facility] cardiology clinic which they are going to help arrange for him to be seen in the next week to 10 days. He does request that we contact [facility] [place] cardiology tomorrow with the echo results. 0. pt will be signed out to my night time colleague to f/u sofiya any acute overnight events. I will be back on shift tomorrow to f/u echo otherwise and make a formal disposition Departure - Departure Clinical Impression: Congestive heart failure (CHF) Qualifiers: Heart failure type: unspecified Heart failure chronicity: acute Qualified Code(s): I50.9 - Heart failure, unspecified Condition: Serious Record reviewed to determine appropriate education?: Yes
[2023-01-21] MEDS: FUROSEMIDE 40 MG/4 ML VIAL IVP STA ×2 (18:28→18:30)
[2023-01-21] MEDS: carvediloL 12.5 MG TABLET PO SCH (21:50)
[2023-01-22 06:17] LABS: CREATININE 1.1 mg/dL (0.6-1.2); POTASSIUM 2.7 mmol/L (3.5-5.0)
[2023-01-22] MEDS ORDERED: FUROSEMIDE 40 MG/4 ML VIAL IVP STA (07:41)
[2023-01-22] MEDS ORDERED: POTASSIUM CHLORIDE 20 MEQ TABLET PO STA (07:41)
[2023-01-22] MEDS: carvediloL 12.5 MG TABLET PO SCH ×2 (08:21→19:12)
[2023-01-22] MEDS ORDERED: METOPROLOL SUCCINATE 25 MG TABLET PO STA (15:25)
[2023-01-22] MEDS ORDERED: FUROSEMIDE 20 MG/2 ML VIAL IVP STA (15:25)
[2023-01-22] MEDS ORDERED: ATORVASTATIN 40 MG TABLET PO STA (15:47)
--- NOTE | 2023-01-22 15:47 | ED Physician Documentation ---
ED Addendum - Addendum Addendum: 01/22/23 15:38 Please see my note from yesterday. In short this is an 82-year-old gentleman that has a remote history of A-fib status post ablation that remains in the long-term rate controlled atrial fib. He did have an intracerebral hemorrhage in September 2021 and due to this he is not a candidate for anticoagulation. He came to the ER yesterday for about 1 week of progressive shortness of air and orthopnea. The chest x-ray showed some mild small bilateral pleural effusions. His EKG showed A-fib but essentially unchanged and nonischemic. Patient had denied chest pain. BNP was markedly elevated at 2300. I briefly discussed this case with Dr. Orozco Cardiology at [facility] and he reported to me that the patient's last echo in June 2022 showed a normal ejection fraction of 55 to 60%. Given the new findings of heart failure he would recommend the patient s ally in the emergency department to obtain an echo. As echo was not available until today the patient has boarded overnight. He was diuresed and on repeat labs this morning he had an improved BNP to 1900. His potassium was mildly low with a K of 3.4 which was repleted with 40 potassium orally. Subsequently an echocardiogram has not been completed. It now shows severely impaired ejection fraction less than 20%. There were regional wall motion abnormalities in the left ventricle. Given this finding it is concerning that the patient may have had a myocardial infarction as a causative agent for the acute congestive heart failure and regional wall motion abnormalities. Given the history of previous intercerebral hemorrhage the patient is not a good candidate for anticoagulation. He has remained in A-fib rate controlled typically in the 90s to the low 100s. I have ordered an additional dose of metoprolol. Unfortunately now given this echocardiogram finding we will reach out to [facility] cardiology for further consultation and management which could include transfer. 01/22/23 16:20 I have spoke with hospitalist Dr. Hoyt And we discussed the patient's case. He is requesting cardiology consult before excepting the patient in transfer as it would be cardiology that would need to make the decision for catheterization or not. I am now awaiting return phone call from cardiology 1730: I have again spoken with the [facility] hospitalist Dr. Lai I was able to answer his questions regarding in and out status which appears the patient has had approximately 33 to 3500 mL of urinary output and very little to no IV fluid intake. He did request respiratory PCR status. [facility] has on their back and contacted cardiology who requested transfer and I have not spoken with cardiology. I did discuss the plan to transfer to [facility] with the accepting physician as above as well as with the patient and his . They are in agree ment Appropriate COBRA paperwork has been completed. Impression: Acute congestive heart failure Ejection fraction less than 20%. History of atrial fibrillation not anticoagulated History of intraparenchymal/intracerebral hemorrhage 01/22/23 17:31
[2023-01-22 18:54] LABS: B. PARAPERTUSSIS- RESP PCR PAN NOT DETECTED; B. PERTUSSIS- RESP PCR PANEL NOT DETECTED; C. PNEUMONIAE- RESP PCR PANEL NOT DETECTED; CORONAVIRUS 229E-RESP PCR NOT DETECTED; CORONAVIRUS HKU1-RESP PCR NOT DETECTED; CORONAVIRUS NL63-RESP PCR NOT DETECTED; CORONAVIRUS OC43-RESP PCR NOT DETECTED; HUMAN METAPNEUMOVIRUS NOT DETECTED; INFLUENZA A- RESP PCR PANEL NOT DETECTED; INFLUENZA B - RESP PCR PANEL NOT DETECTED; M. PNEUMONIAE- RESP PCR PANEL NOT DETECTED; PARAINFLUENZA VIRUS 1 NOT DETECTED; PARAINFLUENZA VIRUS 2 NOT DETECTED; PARAINFLUENZA VIRUS 3 NOT DETECTED; PARAINFLUENZA VIRUS 4 NOT DETECTED; RHINOVIRUS/ENTEROVIRUS NOT DETECTED; RSV- RESP PCR PANEL NOT DETECTED; SARS-CoV-2 -RESP PCR PANEL NOT DETECTED
[2023-01-22 19:10] VITALS: BP 148/100
== END 2023-01-22 19:56 | disposition short-term general hospital (02) ==
LOC: ED 16:06
DX: I11.0 Hypertensive heart disease with heart failure (principal); I50.9 Heart failure, unspecified; I48.91 Unspecified atrial fibrillation; Z79.82 Long term (current) use of aspirin; Z79.899 Other long term (current) drug therapy; Z20.822 Contact with and (suspected) exposure to COVID-19
CPT/HCPCS: 36415; 71045; 80048; 80053; 83690; 83880; 84484; 85025; 87633; 93005; 93306; 96374; 96376; 99285; A9270

== ENCOUNTER 2023-02-07 22:22 | Emergency (ER) | payer MEDICARE ==
[2023-02-07 22:57] LABS: BASOPHILS # (AUTO) 0.1 10^3/uL (0.0-0.1); BASOPHILS % (AUTO) 0.4 %; EOSINOPHILS % (AUTO) 0.3 %; HCT - HEMATOCRIT 42.8 % (42.0-52.0); HGB - HEMOGLOBIN 13.9 g/dL (14.0-18.0); LYMPHOCYTES # (AUTO) 1.3 10^3/uL (1.5-3.5); LYMPHOCYTES % (AUTO) 9.9 %; MEAN CORPUSCULAR HEMOGLOBIN 30.2 pg (27.0-31.0); MEAN CORPUSCULAR HGB CONC 32.5 g/dL (32.0-36.0); MEAN CORPUSCULAR VOLUME 92.8 fL (80.0-94.0); MEAN PLATELET VOLUME 11.1 fL (7.4-11.4); MONOCYTES # (AUTO) 1.9 10^3/uL (0.0-1.0); MONOCYTES % (AUTO) 13.9 %; NEUTROPHILS % (AUTO) 75.1 %; PLT - PLATELET COUNT 191 10^3/uL (130-450); RED BLOOD COUNT 4.61 10^6/uL (4.70-6.10); WHITE BLOOD COUNT 13.3 x10^3/uL (4.8-10.8)
[2023-02-07 23:09] LABS: ALBUMIN 4.4 g/dL (3.2-5.5); ALBUMIN/GLOBULIN RATIO 1.1 (1.0-2.2); BILIRUBIN,TOTAL 3.1 mg/dL (0.2-1.0); CALCIUM 9.3 mg/dL (8.5-10.3); CREATININE 1.4 mg/dL (0.6-1.2); POTASSIUM 3.9 mmol/L (3.5-5.0); TOTAL PROTEIN 8.4 g/dL (6.7-8.2)
[2023-02-07] MEDS ORDERED: SODIUM CHLORIDE 0.9% 250 ML IV STA (23:29)
[2023-02-07] MEDS ORDERED: carvediloL 12.5 MG TABLET PO STA (23:30)
[2023-02-08] MEDS ORDERED: oxyCODONE/ACET 5/325 Prepack 4 PO STA (00:28)
--- NOTE | 2023-02-08 00:32 | ED Physician Documentation ---
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 denies n/v/d fever or urinary sx. did not injure the area. PD PAST MEDICAL HISTORY - Past Medical History Cardiovascular: Hypertension, Atrial fibrillation, Valve disorder Respiratory: None Endocrine/Autoimmune: None GI: None : None Psych: None Musculoskeletal: None Derm: None - Past Surgical History Past Surgical History: Yes General: Hiatal hernia repair Cardiovascular: Valve replacement - Present Medications Home Medications: Ambulatory Orders Medication Instructions Recorded Confirmed Atorvastatin [Lipitor] 20 mg 06/20/18 Metoprolol Succinate 25 mg PO 06/20/18 Rivaroxaban [Xarelto] 20 mg PO 06/20/18 Aspirin [Children's Aspirin] 81 mg PO DAILY 06/11/19 06/11/19 Chlorthalidone 12.5 mg PO DAILY 06/11/19 06/11/19 Furosemide [Lasix] 40 mg PO PRN PRN 06/11/19 06/11/19 Omeprazole 20 mg PO DAILY 06/11/19 06/11/19 Benzonatate [Tessalon] 200 mg PO TID PRN #30 cap 12/15/22 - Allergies Allergies/Adverse Reactions: Allergies Allergy/AdvReac Type Severity Reaction Status Date / Time Sulfa (Sulfonamide Allergy Rash Verified 02/07/23 22:31 Antibiotics) - Social History Does the pt smoke?: No Smoking Status: Never smoker Does the pt drink ETOH?: Yes Does the pt have substance abuse?: No - Immunizations Immunizations are current?: Yes - POLST Patient has POLST: No PD ED PE NORMAL - Vitals Vital signs reviewed: Yes - General General: Alert and oriented X 3, No acute distress, Well developed/nourished - HEENT HEENT: Atraumatic, PERRL, EOMI - Neck Neck: Supple, no meningeal sign - Cardiac Cardiac: RRR - Respiratory Respiratory: No respiratory distress, Clear bilaterally - Abdomen Abdomen: Other (RUQ ttp. otherwise ntnd) - Back Back: No CVA TTP - Derm Derm: Normal color, Warm and dry - Neuro Neuro: Alert and oriented X 3, No motor deficit, No sensory deficit - Psych Psych: Normal mood, Normal affect Results - Vitals Vitals: Vital Signs - 24 hr 02/07/23 02/07/23 02/07/23 22:23 23:00 23:41 Temperature 36.5 C Heart Rate 108 H 107 H 110 H Respiratory 19 17 17 Rate Blood Pressure 119/84 H 108/85 H 125/106 H O2 Saturation 96 97 99 02/08/23 02/08/23 02/08/23 00:41 01:23 02:54 Temperature Heart Rate 98 94 97 Respiratory 17 17 16 Rate Blood Pressure 108/92 H 113/89 H O2 Saturation 98 97 98 02/08/23 02/08/23 04:00 06:00 Temperature Heart Rate 89 93 Respiratory 17 20 Rate Blood Pressure 90/73 111/90 H O2 Saturation 94 98 Oxygen O2 Source Room air - EKG (time done) 0512 EKG releavant findings:: EKG personally interpreted by author of this note. Relevant findings are: Rate: Rate (enter#) (91) Rhythm: NSR [place]: Normal Intervals: RBBB QRS: Normal Ischemia: Normal ST segments Computer interpretation: Disagree with computer (not in afib - NSR with sinus arrhythmia. there are p waves present) - Labs Labs: Laboratory Tests 02/07/23 02/07/23 02/07/23 22:49 22:49 22:49 WBC 13.3 H RBC 4.61 L Hgb 13.9 L Hct 42.8 MCV 92.8 MCH 30.2 MCHC 32.5 RDW 15.0 Plt Count 191 MPV 11.1 Neut # (Auto) 10.0 H Lymph # (Auto) 1.3 L [place] # (Auto) 1.9 H Eos # (Auto) 0.0 Baso # (Auto) 0.1 Absolute Nucleated RBC 0.00 Nucleated RBC % 0.0 Sodium 138 Potassium 3.9 Chloride 103 Carbon Dioxide 27 Anion Gap 8.0 BUN 25 H Creatinine 1.4 H Estimated GFR (MDRD) 48 L Glucose 124 H Calcium 9.3 Total Bilirubin 3.1 H AST 16 ALT 22 Alkaline Phosphatase 68 Troponin I High Sens B-Natriuretic Peptide 868 H Total Protein 8.4 H Albumin 4.4 Globulin 4.0 Albumin/Globulin Ratio 1.1 Lipase 27 SARS-CoV-2 (PCR) 02/07/23 02/08/23 22:49 05:13 WBC RBC Hgb Hct MCV MCH MCHC RDW Plt Count MPV Neut # (Auto) Lymph # (Auto) [place] # (Auto) Eos # (Auto) Baso # (Auto) Absolute Nucleated RBC Nucleated RBC % Sodium Potassium Chloride Carbon Dioxide Anion Gap BUN Creatinine Estimated GFR (MDRD) Glucose Calcium Total Bilirubin AST ALT Alkaline Phosphatase Troponin I High Sens 13.2 B-Natriuretic Peptide Total Protein Albumin Globulin Albumin/Globulin Ratio Lipase SARS-CoV-2 (PCR) NOT DETECTED PD Medical Decision Making - ED course ED course: 82yM p/w RUQ pain radiating to the back. Patient still has his gallbladder, does not know of prior history of stones. DDX included gallstones, cholecystitis, colitis, kidney stones, pneumonia, PE. Patient is not experiencing soa, hemoptysis, unequal leg swelling, pleurisy and has normal o2 sat on RA, therefore PE less likely. He does however have acute RUQ ttp on exam and seems to have been experiencing this pain intermittently, possible after mealtimes which points toward gallstones. CBC, abdominal panel, u/a ordered. CBC showed leukocytosis with WBC 13.3. Tbili 3.1. u/a pending. u/s pending but preliminary read is GB wall thickening without evidence of gallstones. u/s report was equivocal therefore CT AP was ordered which was concerning for pulmonary embolism. Dedicated CTA chest was ordered as well as troponin, BNP, and EKG. BNP 868, moderate elevation. troponin negative. CTA chest interpretation pending. [facility] will accept in transfer for IVC filter placement. Patient is contraindicated for anticoagulation given prior history of intracranial bleeding. Plan to endorse to incoming daytime ED MD at 7am shift change pending transfer to [facility]. Departure - Departure Disposition: ED Transfer to [facility] Clinical Impression: Pulmonary embolism, Elevated bilirubin Condition: Serious
[2023-02-08] MEDS ORDERED: MORPHINE 2 MG/ML CARPUJECT IVP STA (00:56)
--- NOTE | 2023-02-08 00:57 | Ultrasound Report ---
PROCEDURE: Abdomen Limited INDICATIONS: RUQ pain TECHNIQUE: Real-time focused scanning was performed of the abdomen, with image documentation. COMPARISONS: None. FINDINGS: Liver: Liver demonstrates no focal hepatic lesions. Gallbladder: The gallbladder is partially distended limiting evaluation. No gallstones or pericholecy stic fluid. There is mild gallbladder wall thickening measuring up to 0.4 cm which may reflect incomp lete distention. Biliary ducts: No intrahepatic or extrahepatic biliary ductal dilatation. Pancreas: The visualized pancreas appears unremarkable sonographically. Right kidney: Right kidney measures 11.2 cm. No hydronephrosis. There are right renal cortical cysts measuring up to 1.5 cm. IMPRESSION: 1. Partial distention of the gallbladder limiting evaluation. Mild gallbladder wall thickening likely reflects sequela of nondistention. 2. No cholelithiasis or definite evidence of cholecystitis. Reviewed by: Yosef Nichole MD on 02/08/2023 12:56 AM PDT Approved by: Yosef Nichole MD on 02/08/2023 12:56 AM PDT Station ID: [id number]
[2023-02-08 06:22] VITALS: BP 111/90
--- NOTE | 2023-02-08 07:44 | CT Report ---
PROCEDURE: ABDOMEN/PELVIS W INDICATIONS: RUQ pain, n/v CONTRAST: Omni 350 100ml TECHNIQUE: After the administration of IV contrast, 5 mm thick sections acquired from the diaphragms to the symp hysis. 5 mm thick coronal and sagittal reformats were acquired. For radiation dose reduction, the f ollowing was used: automated exposure control, adjustment of mA and/or kV according to patient size. COMPARISON: None FINDINGS: Image quality: Excellent. Lung bases and heart: Filling defects are noted in visualized right lower lobe pulmonary artery branc hes suggestive of pulmonary emboli. Right worse than left bibasilar infiltrates/atelectasis are seen. Heart size is enlarged, no pericardial effusion. Liver: Liver is enlarged. Well-circumscribed hypodense areas are noted in the liver parenchyma measur es up to 1.9 x 1.7 cm in size in posterior segment of right hepatic lobe series 3 image 24. Gallbladder and biliary tree: Gallbladder is within normal limits. No biliary ductal dilatation. Spleen: No splenomegaly. Pancreas: No pancreatic ductal dilation. Adrenals: 2.2 x 1.4 cm hypodense nodule in left adrenal gland is seen. No right adrenal nodules.. Kidneys and ureters: No hydronephrosis. Bilateral renal cysts including left peripelvic renal cysts a re seen measures up to 2.1 x 1.8 cm in size in mid pole of right kidney. No solid mass. Bowel and peritoneum: There is no bowel obstruction. No abnormal bowel wall thickening or mesenteric fat stranding. Sigmoid diverticulosis is seen without colonic wall thickening or pericolonic fat stra nding. No abscess collection. No free air. Small amount of free fluid in posterior lower pelvis anter ior to the distal sigmoid colon and rectum is seen. Lymph nodes: No central or retroperitoneal adenopathy. Vessels: No infrarenal aortic aneurysm. PELVIS Reproductive organs: Unremarkable. Bladder: No abnormal wall thickening, accounting for underdistension. Pelvic lymph nodes: No pelvic adenopathy by size criteria. Bones: No aggressive osseous abnormality. 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 Other: No significant ventral. A small left inguinal hernia containing fat only. IMPRESSION: 1. Finding is suggestive of pulmonary emboli in visualized the right lower lobe pulmonary artery bran ches. Dedicated CT angiogram of chest can be done for further evaluation of this region. 2. Bibasilar infiltrates/atelectasis worse on the right side. 3. No bowel obstruction or abnormal bowel wall thickening. No abscess collection. Small amount of pel gage free fluid which may be reactive. No gross free air. Sigmoid diverticulosis without evidence of a cute diverticulitis. 4. Suggestion of bilateral renal cortical cysts and peripelvic cysts. No hydronephrosis or hydrourete r. 5. Hypodense left adrenal nodule as above which may represent an adrenal adenoma. Clinical and CT fol low-up is recommended. 6. Hepatomegaly. Well-circumscribed hypodensities scattered within liver parenchyma which may represe nt benign process such as hepatic cysts or hemangioma. Findings are concordant with preliminary interpretation provided by [facility]. Reviewed by: Wesley Hines MD on 02/08/2023 7:43 AM PDT Approved by: Wesley Hines MD on 02/08/2023 7:43 AM PDT Station ID: [id number]
--- NOTE | 2023-02-08 08:02 | CT Report ---
PROCEDURE: ANGIO CHEST W/WO INDICATIONS: pulmonary embolism CONTRAST: Omni 350 180ml (100ml abd/pel; 80ml PE) TECHNIQUE: After the administration of intravenous contrast, 2 mm axial images were acquired from the pulmonary apices to the posterior costophrenic angles during the arterial phase. In addition, 1 mm lung kernel and 5 mm soft tissue kernel reconstructions were performed. 3-dimensional coronal oblique maximum int ensity projection (MIP) reformats, 8 mm axial MIP, and 5 mm coronal and sagittal MPR reformats were t hen performed through the thorax. For radiation dose reduction, the following was used: automated exp osure control, adjustment of mA and/or kV according to patient size. COMPARISON: CT of abdomen and pelvis from the same day. FINDINGS: Image quality: Excellent. Large vessels: Pulmonary arteries are normal in size. There are intraluminal filling defects seen in distal right lower lobe pulmonary artery extending to secondary to tertiary branches of right lower l obe pulmonary arteries. Suboptimal contrast filling of distal left lower lobe pulmonary artery branch es, small pulmonary emboli cannot be excluded. Mild ascending thoracic aortic aneurysm measures up to 4.4 cm in largest AP diameter is seen series 5 image 69. Lungs and pleura: Dependent atelectasis in posterior aspect of bilateral lung hawk are seen. Ill-de fined airspace opacities are noted in posterior medial right lower lobe with adjacent hazy groundglas s opacities which may represent small patchy right lower lobe infiltrate versus areas of pulmonary in farction. Trace right pleural effusion is seen. Small infiltrate versus atelectasis in posterior aspe ct of left lung base is also seen. No pneumothorax. Central and peripheral airway is patent. Mediastinum: Heart size is enlarged. No pericardial effusions. Median sternotomy wires and surgical c lips are noted. Moderate atherosclerotic calcifications and coronary vessels and thoracic aorta are s een. No mediastinal adenopathy by size criteria. Distal esophageal wall thickness is normal, no hiata l hernia. Chest wall and lower neck: Thyroid is unremarkable. No axillary or supraclavicular adenopathy by size . Bones: No aggressive osseous abnormality. Degenerative disc disease throughout thoracic spine is seen . Upper Abdomen: Please correlate with CT of abdomen and pelvis report. IMPRESSION: 1. Pulmonary emboli involving distal right lower lobe pulmonary artery extending into secondary terti manjeet branches of right lower lobe pulmonary artery. Suboptimal opacification of distal left lower lobe pulmonary artery branches, small pulmonary emboli cannot be excluded. 2. Small to moderate-sized airspace opacity with surrounding groundglass opacity in posterior and med ial aspect of right lower lobe with trace right pleural effusion. Finding may represent right lower l obe infiltrate versus atelectasis. Pulmonary infarction cannot be excluded. 3. Similar small left basilar infiltrate versus atelectasis. 4. No pneumothorax. Airways patent. 5. No mediastinal or hilar lymphadenopathy by size criteria. 6. Cardiomegaly, no pericardial effusion. Prior median sternotomy. Mild ascending thoracic aortic ane urysm measures up to 4.4 cm in largest AP diameter. Reviewed by: Wesley Hines MD on 02/08/2023 8:00 AM PDT Approved by: Wesley Hines MD on 02/08/2023 8:00 AM PDT Station ID: [id number]
== END 2023-02-08 08:08 | disposition short-term general hospital (02) ==
LOC: ED 22:22
DX: I26.99 Other pulmonary embolism without acute cor pulmonale (principal); E80.7 Disorder of bilirubin metabolism, unspecified; Z86.79 Personal history of other diseases of the circulatory system; Z20.822 Contact with and (suspected) exposure to COVID-19
CPT/HCPCS: 36415; 71275; 74177; 76705; 80053; 83690; 83880; 84484; 85025; 87635; 93005; 96374; 99285; A9270; Q9967

== ENCOUNTER 2023-02-08 08:02 | Outpatient (CLI) | payer MEDICARE | END 2023-02-08 23:59 | disposition short-term general hospital (02) | LOC: EMS 08:02 | PROVIDERS: ATTEND Emergency Medicine | DX: I26.99 Other pulmonary embolism without acute cor pulmonale (principal) | CPT/HCPCS: A0425; A0426 ==

== ENCOUNTER 2023-05-22 04:06 | Emergency (ER) | payer MEDICARE ==
[2023-05-22 04:23] VITALS: BP 114/84; O2SAT 100
--- NOTE | 2023-05-22 05:16 | ED Physician Documentation ---
History of Present Illness - Stated complaint Stated Complaint: R HIP/BACK PX - Chief complaint Chief Complaint: Back Pain - History obtained from History obtained from: Patient - Additonal information Additional information: HPI from patient. Patient c/o atraumatic right hip and right groin pain since yesterday evening. Pain was of gradual onset while at home at rest. No inciting event, and no exac erbating nor ameliorating factors. This includes no change/worsening of pain with movement, palpation. Denies h/o similar symptoms. Denies fever, denies nausea/vomiting. He has taken aleve without relief Review of Systems Constitutional: denies: Fever GI: denies: Abdominal Pain : denies: Testicular pain Skin: denies: Rash Musculoskeletal: reports: Joint pain. denies: Back pain, Extremity swelling, Joint swelling, Pain with weight bearing Neurologic: denies: Focal weakness, Numbness PD PAST MEDICAL HISTORY - Past Medical History Cardiovascular: Hypertension, Atrial fibrillation, Valve disorder Respiratory: None Endocrine/Autoimmune: None GI: None : None Psych: None Musculoskeletal: None Derm: None - Past Surgical History Past Surgical History: Yes General: Hiatal hernia repair Cardiovascular: Valve replacement - Present Medications Home Medications: Ambulatory Orders Medication Instructions Recorded Confirmed Atorvastatin [Lipitor] 20 mg 06/20/18 Metoprolol Succinate 25 mg PO 06/20/18 Rivaroxaban [Xarelto] 20 mg PO 06/20/18 Aspirin [Children's Aspirin] 81 mg PO DAILY 06/11/19 06/11/19 Chlorthalidone 12.5 mg PO DAILY 06/11/19 06/11/19 Furosemide [Lasix] 40 mg PO PRN PRN 06/11/19 06/11/19 Omeprazole 20 mg PO DAILY 06/11/19 06/11/19 Benzonatate [Tessalon] 200 mg PO TID PRN #30 cap 12/15/22 oxyCODONE [Roxicodone] 5 - 10 mg PO Q6H PRN #14 tablet 05/22/23 - Allergies Allergies/Adverse Reactions: Allergies Allergy/AdvReac Type Severity Reaction Status Date / Time Sulfa (Sulfonamide Allergy Rash Verified 02/07/23 22:31 Antibiotics) - Social History Does the pt smoke?: No Smoking Status: Never smoker Does the pt drink ETOH?: Yes Does the pt have substance abuse?: No - Immunizations Immunizations are current?: Yes - POLST Patient has POLST: No PD ED PE NORMAL - Vitals Vital signs reviewed: Yes - General General: Alert and oriented X 3, No acute distress, Well developed/nourished - Abdomen Abdomen: Soft, Non tender, Other (no right inguinal masses, tenderness, visible/palpable hernia) - Derm Derm: Normal color, Warm and dry, No rash - Extremities Extremities: No tenderness to palpate, Normal ROM s pain (right hip: FROM without reproduction/exacerbation of chief complaint), No edema, Other (right hip is not hot to touch; there is no rash nor erythema, no crepitus with palpation nor with ROM) Results - Vitals Vitals: Oxygen O2 Source Room air PD Medical Decision Making - ED course Complexity details: re-evaluated patient, considered differential, d/w patient ED course: atraumatic right hip pain. No emergent testing indicated at this time. Will treat symptomatically (analgesia) and instructed to follow up with PCP, next available appointment. Return precautions were discussed in detail. Given lack of injury as well as FROM and full weight-bearing of/on right hip, would not expect ED imaging (plain-film xrays, CT) to demonstrate acute abnormality that would explain symptoms (such as fracture, including pathologic fracture (would expect some TTP and limitation in ROM)). Doubt infection (such as cellulitis, septic arthritis) given that he is afebrile, and area of discomfort has no erythema, is not hot to touch, and FROM intact. Inguinal hernia not appreciated on exam, although possible that he had right inguinal hernia that reduced prior to evaluation. No rash to suggest herpes zoster (but this was discussed in return precautions (to be vigilant for rash)). Distribution of pain (around lateral aspect of right hip to right groin) would not suggest nerve impingement. He is given oxycodone 5mg PO and on reevaluation reports modest improvement. Given a second dose 5mg PO oxycodone and discharged with rx for same e- prescribed. Departure - Departure Disposition: 01 Home, Self Care Clinical Impression: Hip pain, right Condition: Good Instructions: ED Joint Pain Follow-Up: CEFERINO CRABTREE MD [Primary Care Provider] - Prescriptions: oxyCODONE [Roxicodone] 5 - 10 mg PO Q6H PRN #14 tablet PRN Reason: Pain >8 Comments: Based on your description of symptoms and lack of concerning findings on the physical exam, no tests were performed at this time. I have electronically submitted a prescription for oxycodone (narcotic/opiate pain medication) to the [facility] pharmacy in [place]. Follow-up with your primary care provider regarding reevaluation of this right hip and groin pain. Certainly, you can always return to the emergency department if symptoms worsen, or if you develop new/concerning signs/symptoms (such as fever, pain with weight-bearing, redness/rash over/around the affected area). I am prescribing a short course of narcotic pain medication for you. These are potentially dangerous and addictive medications that should be used carefully. These medications may constipate you. Take an [id number] stool softener (docusate) twice daily with plenty of water while taking these medications. If you go 24 hours without a bowel movement, take [id number] miralax, per package instructions. Do not drink or drive while taking these medications. If you received narcotic or sedating medications while in the emergency departm ent, do not drive for 24 hours. Store this medication in a safe, secure place and out of reach of children. It is a violation of federal law to give or sell this medication to another person or to use in a manner other than prescribed. The ED will not refill narcotic prescriptions, including prescriptions lost or stolen. To dispose of unwanted medications: 1. [facility] at [address] in [place] has a medication drop box. They accept prescription medications (in pill form) Saturday through Saturday 9:00 a.m. to 5:00 p.m. 2. [facility] [employer] accepts prescription medications (in pill form only) for disposal year round. Call for more information. 3. Contact the [facility] for the next [facility] sponsored prescription drug collection event. , [phone], or [phone]; Discharge Date/Time: 05/22/23 07:23
[2023-05-22] MEDS ORDERED: oxyCODONE 5 MG TABLET PO STA ×2 (05:41→06:59)
== END 2023-05-22 07:23 | disposition home or self-care (01) ==
LOC: ED 04:06
DX: M25.551 Pain in right hip (principal); I10 Essential (primary) hypertension; I48.91 Unspecified atrial fibrillation
CPT/HCPCS: 99282; 99283; A9270